=== PATIENT | male | born 1955 | race Caucasian/White ===

== ENCOUNTER 2022-07-01 03:14 | Emergency (ER) | payer SELFPAY ==
[~2022-07-01] VITALS: Ht 165.1 cm; Wt 60.0 kg
[2022-07-01] MEDS ORDERED: IPRATROPIUM BROMIDE (0.02%) 0.5MG/2.5ML NEB HHN STA (03:38)
[2022-07-01] MEDS ORDERED: ALBUTEROL (0.083%) 2.5MG/3ML NEB HHN STA (03:38)
[2022-07-01 03:48] LABS: BASOPHILS % 0.7 % (0.0-2.0); EOSINOPHILS % 8.1 % (0.0-5.0); HEMATOCRIT. 43.3 % (42.0-52.0); HEMOGLOBIN. 14.3 g/dL (14.0-18.0); LYMPHOCYTES % 24.4 % (20.0-50.0); MEAN CORPUSCULAR HEMOGLOBIN 30.8 pg (28.0-32.0); MEAN CORPUSCULAR VOLUME 93.2 fL (80.0-94.0); MEAN PLATELET VOLUME 7.9 fl (7.4-10.4); MONOCYTES % 7.9 % (2.0-8.0); NEUTROPHILS % 58.9 % (40.0-76.0); PLATELET 295 x1000/uL (130-400); RED BLOOD CELL COUNT 4.65 mill/uL (4.7-6.1); RED CELL DISTRIBUTION WIDTH 14.3 % (11.6-14.6)
[2022-07-01 03:57] LABS: CHLORIDE 113 mEq/L (98-107)
[2022-07-01 04:00] VITALS: BP 142/80
[2022-07-01] MEDS ORDERED: P20 MT (05:26)
[2022-07-01] MEDS ORDERED: ALBU90AE INH (05:26)
== END 2022-07-01 06:17 | disposition home or self-care (01) ==
LOC: ER 03:23
DX: J40 Bronchitis, not specified as acute or chronic (principal); R09.81 Nasal congestion; I10 Essential (primary) hypertension; Z87.891 Personal history of nicotine dependence
CPT/HCPCS: 36415; 71045; 80053; 83880; 84484; 85025; 94640; 99284; Z7610